=== PATIENT | male | born 1990 | race Caucasian/White ===

== ENCOUNTER → 2020-04-27 | Outpatient (CLI) | payer SELFPAY ==
[~2020-04-27] MED LIST: /AUGM875TA OR; CELE1CAP4 OR; COLA100C2 OR; MILKSUS OR; VICO5TAB OR
== END ==
LOC: M LABSMTC 10:48
PROVIDERS: ATTEND Pediatrics
DX: Z20.822 Contact with and (suspected) exposure to COVID-19 (principal)